=== PATIENT | male | born 1985 | race Caucasian/White ===

== ENCOUNTER 2024-05-01 19:20 | Emergency (ER) | payer OTHER ==
[2024-05-01] MEDS ORDERED: LORazepam 2 MG/ML VIAL ONE (19:39)
--- NOTE | 2024-05-01 21:07 | RAD REPORT ---
EXAMINATION: XR RIGHT HUMERUS HISTORY: PAIN RIGHT TECHNIQUE: Single view of the right humerus was obtained. COMPARISON: None FINDINGS: No bone or joint abnormality detected. Mild AC joint degenerative changes.
--- NOTE | 2024-05-01 21:08 | RAD REPORT ---
Exam: XR Forearm Right Clinical history: PAIN Technique: Radiographic views of the right forearm. Findings: No fracture or dislocation seen.
--- NOTE | 2024-05-01 21:52 | RAD REPORT ---
EXAMINATION: US UPPER EXTREMITY VENOUS UNILATE CLINICAL INDICATION: Male, 39 years old. [facility] MAIN Pain;Numbness/tingling Bed Name: 20 TECHNIQUE: Complete venous duplex sonography of the right upper extremity was performed. The examinat ion included compression for vein patency, color Doppler imaging and flow augmentation in response to distal compression of the internal jugular, brachiocephalic, subclavian, axillary, brachial, radia l, ulnar, cephalic and basilic veins. COMPARISON: No prior exam. FINDINGS: Duplex sonography testing of the veins of the right upper extremity is completed. Color flow imaging shows all veins to be compressible with appropriate color filling. Pulsatile and phasic flow is present within the upper extremity deep and superficial veins examined. IMPRESSION: There is no deep vein or superficial vein thrombosis.
--- NOTE | 2024-05-01 21:57 | ER ---
Nurse's Notes [facility] Name: Anders Rivera Age: 39 yrs Sex: Male : 1985 Arrival Date: 05/01/2024 Time: 19:20 Bed 20 Private MD: Diagnosis: Pain in right arm;Adverse effect of amphetamines Presentation: 05/01 19:35 Chief complaint: Patient states: I shot up with meth two days ago, since then my right tm6 arm has been numb. Coronavirus screen: Client denies travel out of the [place] in the last 14 days. Ebola Screen: Patient negative for fever greater than or equal to 101.5 degrees Fahrenheit, and additional compatible Ebola Virus Disease symptoms Patient denies exposure to infectious person. Patient denies travel to an Ebola-affected area in the 21 days before illness onset. No symptoms or risks identified at this time. Initial Sepsis Screen: Does the patient meet any 2 criteria? RR > 20 per min. Does the patient have a suspected source of infection? No. Patient's initial sepsis screen is negative. Risk Assessment: Do you want to hurt yourself or someone else? Patient reports no desire to harm self or others. Onset of symptoms was April 29, 2024. 19:35 Method Of Arrival: Wheelchair tm6 19:35 Acuity: JAVAD 3 tm6 Triage Assessment: 19:36 General: Appears distressed, Behavior is anxious, restless. Pain: Complains of pain in tm6 right arm Pain currently is 10 out of 10 on a pain scale. Quality of pain is described as sharp, numb, Pain began 2-3 days ago. EENT: No signs and/or symptoms were reported regarding the EENT system. Neuro: Level of Consciousness is awake, alert, obeys commands, Oriented to person, place, time, situation. Cardiovascular: Patient's skin is warm and dry. Respiratory: Airway is patent Respiratory effort is even, unlabored, Respiratory pattern is regular, symmetrical. GI: No signs and/or symptoms were reported involving the gastrointestinal system. Abdomen is flat, non-distended. : No signs and/or symptoms were reported regarding the genitourinary system. Derm: No signs and/or symptoms reported regarding the dermatologic system. Musculoskeletal: Reports numbness in right arm pain in right arm since two days ago, after injecting meth into arm. Pain is 10 out of 10 on a pain scale. Historical: - Allergies: 19:36 No Known Allergies; tm6 - PMHx: 19:36 None; tm6 - PSHx: 19:36 None; tm6 - Immunization history:: Client reports having NOT received the Covid vaccine. - Infectious Disease History:: Denies. - Social history:: Smoking status: Patient reports the use of cigarette tobacco products, smokes one pack cigarettes per day. Patient uses street drugs, marijuana, Methamphetamine (Meth). Screenin:35 [facility] ED Fall Risk Assessment (Adult) History of falling in the last 3 months, kj2 including since admission No falls in past 3 months (0 pts) Confusion or Disorientation No (0 pts) Intoxicated or Sedated No (0 pts) Impaired Gait No (0 pts) Mobility Assist Device Used No (0 pt) Altered Elimination No (0 pt) Score/Fall Risk Level 0 - 2 = Low Risk Maintained a safe environment, Hourly rounding (assess needs \T\ fall precautionary measures) done. Abuse screen: Denies threats or abuse. Denies injuries from another. Nutritional screening: No deficits noted. Tuberculosis screening: No symptoms or risk factors identified. Assessment: 19:32 General: Appears uncomfortable, Behavior is calm, cooperative. kj2 20:30 Reassessment: Patient appears in no apparent distress at this time. Patient and/or kj2 family updated on plan of care and expected duration. Pain level reassessed. Patient is alert, oriented x 3, equal unlabored respirations, skin warm/dry/pink. 21:22 Reassessment: Patient appears in no apparent distress at this time. Patient and/or kj2 family updated on plan of care and expected duration. Pain level reassessed. Patient is alert, oriented x 3, equal unlabored respirations, skin warm/dry/pink. patient resting comfortably. 22:06 Reassessment: Patient appears in no apparent distress at this time. Patient and/or kj2 family updated on plan of care and expected duration. Pain level reassessed. Patient is alert, oriented x 3, equal unlabored respirations, skin warm/dry/pink. Vital Signs: 19:35 BP 165 / 117; Pulse 99; Resp 25; Temp 98.2(O); Pulse Ox 100% on R/A; MAP 127 mmHg; tm6 Weight 72.57 kg; Height 5 ft. 4 in. ; Pain 10/10; 19:35 Pain 10/10; tm6 19:46 BP 165 / 117; Pulse 121; Resp 20; Temp 98.2; Pulse Ox 100% on R/A; kj2 20:11 BP 118 / 78; Pulse 104; Resp 20; Pulse Ox 100% on R/A; kj2 21:20 BP 129 / 74; Pulse 97; Resp 20; Pulse Ox 95% on R/A; kj2 22:06 BP 134 / 74; Pulse 92; Resp 18; Temp 98.2; Pulse Ox 100% on R/A; kj2 19:35 Body Mass Index 27.46 (72.57 kg, 162.56 cm) tm6 19:35 Pain Scale: Adult tm6 19:35 Pain Scale: Adult tm6 ED Course: 19:25 Patient arrived in ED. jj6 19:29 [facility]in [facility] sb4 19:29 Warren Melvin MD is Attending Physician. sb4 19:32 Tabatha Schmitt, HARJEET is Primary Nurse. kj2 19:36 Triage completed. tm6 19:36 Arm band placed on left wrist. tm6 19:48 Patient has correct armband on for positive identification. Bed in low position. Call kj2 light in reach. Adult w/ patient. Provided Education on: call light. 20:34 Humerus Right XRAY In Process Unspecified. EDMS 20:34 Forearm Right XRAY In Process Unspecified. EDMS 21:10 UPPER EXTREMITY VENOUS UNILATE In Process Unspecified. EDMS 22:05 Patient did not have IV access during this emergency room visit. kj2 22:06 No provider procedures requiring assistance completed. kj2 Administered Medications: 19:43 Drug: LORazepam IM 2 mg IM once Route: IM; Site: left deltoid; kj2 21:11 Follow up: Response: No adverse reaction; Anxiety decreased kj2 Medication: 19:48 VIS not applicable for this client. kj2 Outcome: 21:57 Discharge ordered by . sb4 22:03 Discharged to home ambulatory, kj2 22:03 Condition: stable 22:03 Discharge instructions given to patient, Instructed on discharge instructions, follow up and referral plans. Demonstrated understanding of instructions, follow-up care, 22:23 Patient left the ED. kj2 Signatures: Dispatcher [employer] Ema Castillo jj6 Katerin Rodgers PA-C PA-C sb4 Win Shultz RN RN tm6 Tabatha Schmitt RN RN kj2
--- NOTE | 2024-05-01 21:57 | EDPHYS ---
Physician Documentation [facility] Name: Anders Rivera Age: 39 yrs Sex: Male : 1985 Arrival Date: 05/01/2024 Time: 19:20 Bed 20 Private MD: ED Physician Warren Melvin HPI: 05/01 19:50 This 39 yrs old Male presents to ER via Wheelchair with complaints of Arm Pain. sb4 20:02 patient states that he injected himself with meth in his upper right arm 3 days ago and sb4 has had pain, decreased ROM, and numbness/tingling since. states that after he went to grab something with his hand today it got significantly worse. he denies any redness, swelling, warmth. Historical: - Allergies: 19:36 No Known Allergies; tm6 - PMHx: 19:36 None; tm6 - PSHx: 19:36 None; tm6 - Immunization history:: Client reports having NOT received the Covid vaccine. - Infectious Disease History:: Denies. - Social history:: Smoking status: Patient reports the use of cigarette tobacco products, smokes one pack cigarettes per day. Patient uses street drugs, marijuana, Methamphetamine (Meth). ROS: 20:02 Constitutional: Negative for fever, chills, and weight loss, sb4 20:02 MS/extremity: Positive for decreased range of motion, pain, of the right arm, 20:02 All other systems are negative, Exam: 20:02 Head/Face: Normocephalic, atraumatic. Eyes: Extra-ocular motions intact. Periorbital sb4 areas with no swelling, redness, or edema. ENT: Mucous membranes moist. 20:02 Constitutional: The patient appears alert, awake, agitated, restless, uncomfortable, 20:02 Skin: cellulitis, is not appreciated, injury, is not appreciated, puncture(s), small healing puncture wound with surrounding yellow/green bruise right bicep, Vital Signs: 19:35 BP 165 / 117; Pulse 99; Resp 25; Temp 98.2(O); Pulse Ox 100% on R/A; MAP 127 mmHg; tm6 Weight 72.57 kg; Height 5 ft. 4 in. ; Pain 10/10; 19:35 Pain 10/10; tm6 19:46 BP 165 / 117; Pulse 121; Resp 20; Temp 98.2; Pulse Ox 100% on R/A; kj2 20:11 BP 118 / 78; Pulse 104; Resp 20; Pulse Ox 100% on R/A; kj2 21:20 BP 129 / 74; Pulse 97; Resp 20; Pulse Ox 95% on R/A; kj2 22:06 BP 134 / 74; Pulse 92; Resp 18; Temp 98.2; Pulse Ox 100% on R/A; kj2 19:35 Body Mass Index 27.46 (72.57 kg, 162.56 cm) tm6 19:35 Pain Scale: Adult tm6 19:35 Pain Scale: Adult tm6 MDM: 19:31 Medical Screening Exam initiated sb4 21:57 Data reviewed: vital signs, nurses notes, lab test result(s), and as a result, I will sb4 discharge patient. Counseling: I had a detailed discussion with the patient and/or guardian regarding the historical points, exam findings, and any diagnostic results supporting the discharge/admit diagnosis, radiology results, to return to the emergency department if symptoms worsen or persist or if there are any questions or concerns that arise at home. 05/01 19:38 Order name: Humerus Right XRAY; Complete Time: 21:09 sb4 05/01 19:38 Order name: Forearm Right XRAY; Complete Time: 21:09 sb4 05/01 19:57 Order name: UPPER EXTREMITY VENOUS UNILATE; Complete Time: 21:52 EDMS Administered Medications: 19:43 Drug: LORazepam IM 2 mg IM once Route: IM; Site: left deltoid; kj2 21:11 Follow up: Response: No adverse reaction; Anxiety decreased kj2 Disposition: 21:57 Chart complete. sb4 Disposition Summary: 05/01/24 21:57 Discharge Ordered Notes: Location: Home sb4 Problem: new sb4 Symptoms: have improved sb4 Condition: Stable sb4 Diagnosis - Pain in right arm sb4 - Adverse effect of amphetamines sb4 Followup: sb4 - With: Private Physician - When: As needed - Reason: Recheck today's complaints, Re-evaluation by your physician Discharge Instructions: - Discharge Summary Sheet sb4 - Neuropathic Pain sb4 Forms: - Patient Portal Instructions sb4 - Leadership Thank You Letter sb4 Prescriptions: - Ibuprofen 800 mg Oral Tablet - take 1 tablet ORAL route every 8 hours As needed take with food; 30 tablet; sb4 Refills: 0, Product Selection Permitted - Cyclobenzaprine 10 mg Oral Tablet - take 1 tablet ORAL route every 8 hours As needed; 30 tablet; Refills: 0, sb4 Product Selection Permitted Signatures: Dispatcher [employer] Katerin Dunn PA-C PA-C sb4 Win Shultz RN RN tm6 Tabatha Schmitt RN RN kj2 Corrections: (The following items were deleted from the chart) 19:57 19:39 Extremity Venous [email or web address] ordered. EDMS EDMS
[2024-05-02 04:54] VITALS: TEMP 98.2
[2024-05-02 04:59] VITALS: BP 134/74; O2SAT 100
== END 2024-05-01 22:23 | disposition home or self-care (01) ==
LOC: ER 19:20
DX: M79.621 Pain in right upper arm (principal); T43.625A Adverse effect of amphetamines, initial encounter; F17.210 Nicotine dependence, cigarettes, uncomplicated; F15.90 Other stimulant use, unspecified, uncomplicated; F12.90 Cannabis use, unspecified, uncomplicated; F19.90 Other psychoactive substance use, unspecified, uncomplicated
CPT/HCPCS: 93971; 96372; 99284